=== PATIENT | male | born 1975 | race Caucasian/White ===

== ENCOUNTER 2019-02-17 06:57 | Emergency (ER) | payer OTHER ==
[~2019-02-17] VITALS: Ht 182.9 cm; Wt 90.7 kg
== END 2019-02-17 10:35 | disposition home or self-care (01) ==
LOC: ER 06:57
DX: S13.4XXA Sprain of ligaments of cervical spine, initial encounter (principal); S30.0XXA Contusion of lower back and pelvis, initial encounter; V49.9XXA Car occupant (driver) (passenger) injured in unspecified traffic accident, initial encounter; Y93.89 Activity, other specified; Y92.488 Other paved roadways as the place of occurrence of the external cause; Y99.8 Other external cause status

== ENCOUNTER → 2019-08-22 | Emergency (ER) | payer OTHER ==
[~2019-08-22] VITALS: Ht 182.9 cm; Wt 90.7 kg
[~2019-08-22] MED LIST: DORADOL; NORFLED
== END | disposition home or self-care (01) ==
LOC: ER 22:08
DX: M62.830 Muscle spasm of back (principal)

== ENCOUNTER 2023-05-17 08:54 | Emergency (ER) | payer OTHER ==
[~2023-05-17] VITALS: Ht 182.9 cm; Wt 94.3 kg
[2023-05-17] MEDS ORDERED: DICLOFENAC POTA50 MG PO (09:17)
[2023-05-17] MEDS ORDERED: NORFLEX100MG PO (09:35)
[2023-05-17] MEDS ORDERED: DICLOFENAC SODI75 MG PO (09:35)
== END 2023-05-17 09:46 | disposition home or self-care (01) ==
LOC: ER 08:54
DX: M54.50 Low back pain, unspecified (principal)